=== PATIENT | female | born 1990 | race Hispanic/Latino ===

== ENCOUNTER 2019-09-19 23:02 | Emergency (ER) | payer SELFPAY ==
[2019-09-19] MEDS ORDERED: NALOXONE 2 MG/2 ML INJ ONE (23:14)
[2019-09-19] MEDS ORDERED: AMMONIA INHALANT IH ONE (23:15)
[2019-09-19] MEDS ORDERED: DEXTROSE 50% IN WATER (25GM) 50 ML SYRINGE IV ONE (23:19)
[2019-09-19] MEDS ORDERED: NALOXONE 0.4 MG/1 ML INJ IV PRN (23:20)
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
[2019-09-19 23:43] LABS: Hematocrit 40.5 % (30.3-42.9); Hemoglobin 13.5 gm/dl (10.1-14.3); Mean Corpuscular HGB Conc 33 % (30-34); Mean Corpuscular Volume 87 fl (79-97); Platelet Count 405 K/mm3 (140-440); Red Blood Count 4.65 M/mm3 (3.65-5.03); Red Cell Distribution Width 14.1 % (13.2-15.2)
[2019-09-20 00:05] LABS: Alanine Aminotransferase 8 units/L (7-56); Albumin 4.1 g/dL (3.9-5); BUN/Creatinine Ratio 36; Blood Urea Nitrogen 29 mg/dL (7-17); Calcium 9.1 mg/dL (8.4-10.2); Hemolysis Index 5
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
[2019-09-20 03:46] VITALS: BP 112/64
== END 2019-09-20 03:30 | disposition home or self-care (01) ==
LOC: ED 23:02
DX: R55 Syncope and collapse (principal); V49.29XA Unspecified car occupant injured in collision with other motor vehicles in nontraffic accident, initial encounter; Y92.410 Unspecified street and highway as the place of occurrence of the external cause; Y93.89 Activity, other specified; Y99.8 Other external cause status
CPT/HCPCS: 36415; 70450; 71045; 72125; 72170; 80053; 82140; 82550; 82962; 83735; 84443; 84702; 85027; 85730; 93005; 96374; 99285; J2310; 80320; G0480